=== PATIENT | female | born 1965 | race Caucasian/White ===

== ENCOUNTER 2018-07-26 14:23 | Inpatient (IN) ==
[2018-07-26] MEDS ORDERED: Sod Chloride 0.9% Inj 1,000 ML IV.SIG SCH (15:00)
--- NOTE | 2018-07-26 15:01 | ED ---
HPI General Chief complaint: Fever Stated complaint: fever/chills following masectomy/chest pain Time Seen by Provider: 07/26/18 14:53 Source: patient Mode of arrival: ambulatory Limitations: no limitations History of Present Illness HPI narrative: 55-year-old female is complaining that she feels like she is having fever. She is been aching all over. Her joints have been sore. She has had a slight cough and she has pain with coughing. She had a mastectomy done on June 28 at [facility] with Dr. Looney. She saw him last Monday and he injected tissue good humor vendor into the right breast. She has not actually checked her fever. She is generally healthy. She was diagnosed with intraductal carcinoma. There is no history of diabetes Related Data Home Medications Medication Instructions Recorded Confirmed ibuprofen 600 mg PO TID PRN 06/27/18 07/26/18 diazepam PRN 07/26/18 Allergies Allergy/AdvReac Type Severity Reaction Status Date / Time No Known Allergies Allergy Verified 07/26/18 14:25 Review of Systems ROS: all other systems reviewed are negative [facility] Medical History Medical History Breast cancer (Acute) Dental root implant present (Acute) Wears glasses (Acute) Surgical History Surgical History H/O mastectomy (Acute) H/O breast biopsy (Acute) H/O oral surgery (Acute) History of lumpectomy of right breast (Acute) Social History Social History Substance History: No History of Abuse Second Hand Smoke Exposure: No Smoking Status: Never smoker How Often Do You Have a Drink Containing Alcohol: Never Recent Travel in [facility] within the Last 8 Weeks: No Recent Out of Country Travel within the Last 8 Weeks: No Exam Narrative Exam Narrative: GENERAL: Well-developed female SKIN: Focused skin assessment warm/dry. Right breast has surgical changes. The entire breast is erythematous and warm extending into the axilla. There is no fluctuance HEAD: Atraumatic. Normocephalic. EYES: Pupils equal and round. No scleral icterus. No injection or drainage. ENT: No nasal bleeding or discharge. Mucous membranes pink and moist. NECK: Trachea midline. No JVD. CARDIOVASCULAR: Regular rate and rhythm. No murmur appreciated. RESPIRATORY: No accessory muscle use. Clear to auscultation. Breath sounds equal bilaterally. GASTROINTESTINAL: Abdomen soft, non-tender, nondistended. Hepatic and splenic margins not palpable. MUSCULOSKELETAL: No obvious deformities. No clubbing. No cyanosis. No edema. NEUROLOGICAL: Awake and alert. No obvious cranial nerve deficits. Motor grossly within normal limits. Normal speech. PSYCHIATRIC: Appropriate mood and affect; insight and judgment normal. Course Initial Documented Vital Signs Temperature 99.1 F 07/26/18 14:26 Pulse Rate 90 07/26/18 14:26 Respiratory Rate 16 07/26/18 14:26 Blood Pressure 138/63 07/26/18 14:26 Pulse Oximetry 99 07/26/18 14:26 Last Documented Vital Signs Temperature 99.1 F 07/26/18 14:26 Pulse Rate 90 07/26/18 14:26 Respiratory Rate 16 07/26/18 14:26 Blood Pressure 138/63 07/26/18 14:26 Pulse Oximetry 98 07/26/18 14:40 Medical Decision Making MDM Narrative Medical decision making narrative: White count is 9.5. Dr. Looney has been called Medical Screen Exam Complete: Yes Emergency Medical Condition: Yes Differential Diagnosis Differential Diagnosis: Differential includes cellulitis of the breast, postop infection, foreign body reaction Lab Data Result diagrams: 07/26/18 15:15 07/26/18 15:15 Lab Results 07/26/18 07/26/18 Range/Units 15:15 15:15 CBC w Diff Auto diff final WBC 9.6 (4.0-11.0) th/mm3 RBC 4.14 (4.00-5.30) mil/mm3 Hgb 12.1 (11.6-15.3) gm/dL Hct 35.3 (35.0-46.0) % MCV 85.2 (80.0-100.0) fL MCH 29.3 (27.0-34.0) pg MCHC 34.3 (32.0-36.0) % RDW 12.4 (11.6-17.2) % Plt Count 267 (150-450) th/mm3 MPV 8.1 (7.0-11.0) fL Neut % (Auto) 74.5 H (16.0-70.0) % Lymph % (Auto) 17.3 (9.0-44.0) % [place] % (Auto) 7.3 (0.0-8.0) % Eos % (Auto) 0.6 (0.0-4.0) % Baso % (Auto) 0.3 (0.0-2.0) % Neut # (Auto) 7.1 (1.8-7.7) th/mm3 Lymph # (Auto) 1.7 (1.0-4.8) th/mm3 [place] # (Auto) 0.7 (0.0-0.9) th/mm3 Eos # (Auto) 0.1 (0.0-0.4) th/mm3 Baso # (Auto) 0.0 (0.0-0.2) th/mm3 WBC Differential . Differential Comment . Sodium 140 (136-145) meq/L Potassium 3.8 (3.5-5.1) meq/L Chloride 108 H (98-107) meq/L Carbon Dioxide 25.5 (21.0-32.0) meq/L Anion Gap 7 (5-15) meq/L BUN 11 (7-18) mg/dL Random Glucose 108 H (74-106) mg/dL Calcium 8.3 L (8.5-10.1) mg/dL Magnesium 2.0 (1.5-2.5) mg/dL Albumin 3.4 (3.4-5.0) g/dL Imaging Data Radiologist's impression: Chest X-Ray 07/26/18 14:55 CONCLUSION: No acute disease Discharge Plan Discharge Disposition Patient Disposition: 30 Still Patient Discharge Condition Condition: Fair Discharge Details Diagnosis: Cellulitis of right breast Physicians Team ED Provider: Chetan Humphries Primary Care Provider: Primary Care LucioiLisseth Rxs /Orders / Referrals /Forms Prescriptions: No Action ibuprofen 600 mg Tablet 600 mg PO TID PRN (Reason: Pain) RF: 0 diazepam PRN (Reason: Analgesia) RF: 0 Status ED Status: With Doctor
--- NOTE | 2018-07-26 15:24 | XR ---
EXAM DATE: 07/26/2018 3:15 PM EST AGE/SEX: 52 years / Female INDICATIONS: Fever for 2 days post mastectomy 1 month ago. CLINICAL DATA: This is the patient's initial encounter. Patient reports that signs and symptoms have been present for 2 days and indicates a pain score of 0/10. MEDICAL/SURGICAL HISTORY: Carcinoma, breast. Mastectomy, right. COMPARISON: No prior exams available for comparison. FINDINGS: No focal infiltrate or effusion. Cardiac contours are satisfactory. Right breast tissue dental therapist in p lace. Skeletal structures grossly unremarkable. CONCLUSION: No acute disease Electronically signed by: Asif Friedman MD 07/26/2018 3:22 PM EST
[2018-07-26 15:39] LABS: Baso % (Auto) 0.3 % (0.0-2.0); Eos # (Auto) 0.1 th/mm3 (0.0-0.4); Eos % (Auto) 0.6 % (0.0-4.0); Hematocrit 35.3 % (35.0-46.0); Hemoglobin 12.1 gm/dL (11.6-15.3); Lymph # (Auto) 1.7 th/mm3 (1.0-4.8); Lymph % (Auto) 17.3 % (9.0-44.0); Mean Corpuscular HGB Conc 34.3 % (32.0-36.0); Mean Corpuscular Hemoglobin 29.3 pg (27.0-34.0); Mean Corpuscular Volume 85.2 fL (80.0-100.0); Mean Platelet Volume 8.1 fL (7.0-11.0); Mono # (Auto) 0.7 th/mm3 (0.0-0.9); Mono % (Auto) 7.3 % (0.0-8.0); Neut # (Auto) 7.1 th/mm3 (1.8-7.7); Neut % (Auto) 74.5 % (16.0-70.0); Platelet Count 267 th/mm3 (150-450); Red Blood Count 4.14 mil/mm3 (4.00-5.30); Red Cell Distribution Width 12.4 % (11.6-17.2); White Blood Count 9.6 th/mm3 (4.0-11.0)
[2018-07-26 15:40] LABS: Chloride 108 meq/L (98-107); Potassium 3.8 meq/L (3.5-5.1); Sodium 140 meq/L (136-145)
[2018-07-26 15:43] LABS: Calcium 8.3 mg/dL (8.5-10.1)
[2018-07-26] MEDS ORDERED: Piperacil/Tazo 4.5 GM Premix 4.5 GM/100 ML BAG IV.SIG ONE (15:43)
[2018-07-26] MEDS ORDERED: Vancomycin Inj 1,000 MG in Sodium Chlor 0.9% Inj 250 ML IV.SIG ONE (15:43)
[2018-07-26 15:44] LABS: Albumin 3.4 g/dL (3.4-5.0); Anion Gap 7 meq/L (5-15); Blood Urea Nitrogen 11 mg/dL (7-18); Carbon Dioxide 25.5 meq/L (21.0-32.0); Glucose,Random 108 mg/dL (74-106)
[2018-07-26 15:47] LABS: Alanine Aminotransferase 52 U/L (10-53); Aspartate Aminotransferase 41 U/L (15-37); Glomerular Filtration Rate Greater Than 89 mL/min (>89)
[2018-07-26 15:48] LABS: Total Protein 7.1 g/dL (6.4-8.2)
[2018-07-26 15:49] LABS: Alkaline Phosphatase 128 U/L (45-117)
[2018-07-26 16:23] LABS: Bilirubin,Urine Negative (Negative); Clarity,Urine Slightly Cloudy (Clear); Color,Urine Yellow (Yellw/Straw); Glucose,Urine (UA) Negative (Negative); Leukocyte Esterase,Urine Negative (Negative); Nitrite,Urine Negative (Negative)
[2018-07-26 16:31] LABS: Amorphous Sediment,Urine Few /hpf; WBC,Urine 0-5 /hpf (0-5)
[2018-07-26 16:32] LABS: Squamous Epithelial Cell,Urine 0-5 /hpf (0-5)
[2018-07-26] MEDS ORDERED: Bisacodyl 10 MG Supp RECTAL PRN (16:56)
[2018-07-26] MEDS ORDERED: Acetaminophen 325 MG Tablet PO PRN (16:56)
--- NOTE | 2018-07-26 17:01 | P.HP ---
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 Patient states that she underwent a total right mastectomy on 06/28/[address] Loyola and Dr. Looney and since that time was doing very well post operatively. She visited Dr. Looney's office on Monday07/24/18 for drain removal and placement of breast service dismantler. Patient states that she went home and was doing well over the course of the afternoon when that evening around 2030 on Monday she developed sudden chills and subjective fevers of 99.0. Patient states she took some Advil and rested. The next day she complaints of overall generalized fatigue, low-grade fevers, continued chills and developing pain over her right breast and mid sternal area. She states the pain was characteristically heavy in nature, constant and worsened with every breath. Pain has improved with rest and NSAIDs. Along with said symptoms she also noticed a developing mild erythema around her right areola, extending around her entire breast and moving to axilla which prompted her presentation to the ED. Upon assessment tonight patient has mild erythema around right areola expanding to her right axilla, with tenderness to palpation especially in midsternal chest area. ED physician requesting admission and consult placed to plastic surgery Dr. Looney. - Diagnosis (1) Ductal carcinoma in situ of right breast (2) Cellulitis of right breast (3) Amastia Review of Systems All other systems reviewed negative except as stated in HPI PMFSH - History History Provided By: Patient - Medical History Medical History: Medical History (Last Reviewed 07/26/18 @ 17:37 by Veronika Ferreira) Breast cancer Dental root implant present Wears glasses - Surgical History Surgical History: Surgical History (Last Reviewed 07/26/18 @ 17:37 by Veronika Ferreira) H/O mastectomy H/O breast biopsy H/O oral surgery History of lumpectomy of right breast - Family History Family History: Family History (Last Updated 07/26/18 @ 17:37 by Veronika Ferreira) Other Family history non-contributory - Social History I have reviewed the patient's Social History: Yes - Tobacco History Second Hand Smoke Exposure: No Smoking Status: Never smoker - Alcohol History How Often Do You Have a Drink Containing Alcohol: Never - Substance Use History Substance History: No History of Abuse - Travel History Recent Travel in the [place] Within the Last 8 Weeks: No Recent Travel Out of the Country Within the Last 8 Weeks: No - Immunization History Tetanus Immunization: Unsure Medications and Allergies Active Medications: Active Medications Acetaminophen (Tylenol) 650 mg PO Q4H PRN PRN Reason: Temp > 100.4 Al Hydroxide/Mg Hydroxide (Milk Of Magnesia Liq) 30 ml PO Q12H PRN PRN Reason: Mild Constipation Bisacodyl (Dulcolax Supp) 10 mg RECTAL DAILY PRN PRN Reason: SEVERE CONSITIPATION Ampicillin Sodium/Sulbactam (Sodium 3 gm/ Sodium Chloride) 100 mls @ 200 mls/ hr IV.SIG Q6H BEBETO Sodium Chloride (Ns Inj) 1,000 mls @ 100 mls/hr IV.CONT .Q10H BEBETO Vancomycin HCl 1,000 mg/ (Sodium Chloride) 250 mls @ 250 mls/hr IV.SIG Q24H BEBETO Lactulose (Lactulose Liq) 30 ml PO DAILY PRN PRN Reason: SEVERE CONSITIPATION Ondansetron HCl (Zofran Inj) 4 mg IV.PUSH Q6H PRN PRN Reason: NAUSEA OR VOMITING Sennosides (Senokot) 17.2 mg PO Q12H PRN PRN Reason: Moderate Constipation Allergies Allergy/AdvReac Type Severity Reaction Status Date / Time No Known Allergies Allergy Verified 07/26/18 14:25 Home Medications Medication Instructions Recorded Confirmed Type ibuprofen 600 mg PO TID PRN 06/27/18 07/26/18 History diazepam PRN 07/26/18 History Exam Vital signs: Vital Signs 07/26/18 14:26 07/26/18 14:40 07/26/18 15:50 Temperature 99.1 F Pulse Rate 90 85 Respiratory Rate 16 20 Blood Pressure 138/63 116/62 Pulse Oximetry 99 98 100 07/26/18 15:51 07/26/18 15:52 07/26/18 16:56 Temperature Pulse Rate 77 85 Respiratory Rate 16 Blood Pressure 102/60 Pulse Oximetry 96 Intake & Output 07/25/18 07/26/18 07/26/18 18:59 06:59 18:59 Intake Total 1100 / 1100 Balance 1100 / 1100 Weight 67 kg Intake: IV 1100 / 1100 Zosyn 4.5 GM Premix 4.5 gm In 100 / 100 100 ml @ 200 mls/hr IV.SIG ONCE ONE Rx#:[id number] NS Inj 1,000 ML @ 1000 mls/hr 1000 / 1000 IV.SIG BOLUS BEBETO Rx#:[id number] Narrative: GENERAL: Well-developed, well-nourished patient in NAD. SKIN: Warm and dry. No rash. HEAD: Normocephalic. Atraumatic. EYES: Pupils equal and round. No scleral icterus. No injection or drainage. ENT: No nasal bleeding or discharge. Mucous membranes pink and moist. NECK: Supple. Trachea midline. CARDIOVASCULAR: Regular rate and rhythm. S1, S2 noted. No murmur appreciated. Midsternal chest discomfort to palpation. RESPIRATORY: No accessory muscle use. Clear to auscultation. Breath sounds equal bilaterally. GASTROINTESTINAL: Abdomen soft, non-tender, nondistended. Normoactive bowel sounds x4. MUSCULOSKELETAL: No obvious deformities. Extremities without clubbing, cyanosis , or edema. NEUROLOGICAL: Awake and alert. No obvious cranial nerve deficits. Motor grossly within normal limits. 5/5 muscle strength in bilateral upper and lower extremities. Normal speech. PSYCHIATRIC: Appropriate mood and affect; insight and judgment normal. RIGHT BREAST: Amastia to right breast with surgical changes, erythema to entire right breast extending to axilla. No palpable fluctuance. Pain is noted to palpation especially in midsternal chest area. No drainage. Surgical site clean , dry and intact. Incision clean. Results - Labs CBC & Chem 7: 07/26/18 15:15 07/26/18 15:15 Labs: Laboratory Results - last 24 hr 07/26/18 07/26/18 07/26/18 15:15 15:15 15:15 CBC w Diff Auto diff final WBC 9.6 RBC 4.14 Hgb 12.1 Hct 35.3 MCV 85.2 MCH 29.3 MCHC 34.3 RDW 12.4 Plt Count 267 MPV 8.1 Neut % (Auto) 74.5 H Lymph % (Auto) 17.3 [place] % (Auto) 7.3 Eos % (Auto) 0.6 Baso % (Auto) 0.3 Neut # (Auto) 7.1 Lymph # (Auto) 1.7 [place] # (Auto) 0.7 Eos # (Auto) 0.1 Baso # (Auto) 0.0 WBC Differential . Differential Comment . Sodium 140 Potassium 3.8 Chloride 108 H Carbon Dioxide 25.5 Anion Gap 7 BUN 11 Creatinine 0.67 Estimated GFR Greater than 89 Random Glucose 108 H Lactic Acid 0.6 Calcium 8.3 L Magnesium 2.0 Total Bilirubin 0.4 AST 41 H ALT 52 Alkaline Phosphatase 128 H Total Protein 7.1 Albumin 3.4 Ur Collection Type Urine Color Urine Clarity Urine pH Ur Specific [place] Urine Protein Urine Glucose (UA) Urine Ketones Urine Occult Blood Urine Nitrate Urine Bilirubin Urine Urobilinogen Ur Leukocyte Esterase Urine WBC Ur Squamous Epith Cells Amorphous Sediment Micro UA Comment Ur Microscopic Review Urine Culture Comments 07/26/18 16:00 CBC w Diff WBC RBC Hgb Hct MCV MCH MCHC RDW Plt Count MPV Neut % (Auto) Lymph % (Auto) [place] % (Auto) Eos % (Auto) Baso % (Auto) Neut # (Auto) Lymph # (Auto) [place] # (Auto) Eos # (Auto) Baso # (Auto) WBC Differential Differential Comment Sodium Potassium Chloride Carbon Dioxide Anion Gap BUN Creatinine Estimated GFR Random Glucose Lactic Acid Calcium Magnesium Total Bilirubin AST ALT Alkaline Phosphatase Total Protein Albumin Ur Collection Type Clean catch Urine Color Yellow Urine Clarity Slightly cloudy Urine pH 7.0 Ur Specific [place] 1.010 Urine Protein Negative Urine Glucose (UA) Negative Urine Ketones Negative Urine Occult Blood Trace Urine Nitrate Negative Urine Bilirubin Negative Urine Urobilinogen 1.0 Ur Leukocyte Esterase Negative Urine WBC 0-5 Ur Squamous Epith Cells 0-5 Amorphous Sediment Few H Micro UA Comment Culture not ind Ur Microscopic Review Microscopic reviewed Urine Culture Comments Culture not ind - Imaging Impressions Chest X-Ray 07/26/18 14:55 CONCLUSION: No acute disease Caprini VTE Risk Assessment Caprini VTE Risk Assessment: No/Low Risk (score <= 1) Caprini Risk Assessment Model: Point Value = 1 Point Value = 2 Point Value = 3 Point Value = 5 Age 41-60 Minor surgery BMI > 25 kg/m2 Swollen legs Varicose veins or History of unexplained or recurrent spontaneous Oral contraceptives or hormone replacement Sepsis (< 1 month) Serious lung disease, including pneumonia (< 1 month) Abnormal pulmonary function Acute myocardial infarction Congestive heart failure (< 1 month) History of inflammatory bowel disease Medical patient at bed rest Age 61-74 Arthroscopic surgery Major open surgery (> 45 min) Laparoscopic surgery (> 45 min) Malignancy Confined to bed (> 72 hours) Immobilizing plaster cast Central venous access Age >= 75 History of VTE Family history of VTE Factor V Leiden Prothrombin [id number] Lupus anticoagulant Anticardiolipin antibodies Elevated serum homocysteine Heparin-induced thrombocytopenia Other congenital or acquired thrombophilia Stroke (< 1 month) Elective arthroplasty Hip, pelvis, or leg fracture Acute spinal cord injury (< 1 month) Prophylaxis Regimen: Total Risk Factor Score Risk Level Prophylaxis Regimen 0-1 Low Early ambulation 2 Moderate Order ONE of the following: *Sequential Compression Device (SCD) *Heparin 5000 units SQ BID 3-4 Higher Order ONE of the following medications: *Heparin 5000 units SQ TID *Enoxaparin/Lovenox 40 mg SQ daily (WT < 150 kg, CrCl > 30 mL/min) *Enoxaparin/Lovenox 30 mg SQ daily (WT < 150 kg, CrCl > 10-29 mL/min) *Enoxaparin/Lovenox 30 mg SQ BID (WT < 150 kg, CrCl > 30 mL/min) AND/OR *Sequential Compression Device (SCD) 5 or more Highest Order ONE of the following medications: *Heparin 5000 units SQ TID (Preferred with Epidurals) *Enoxaparin/Lovenox 40 mg SQ daily (WT < 150 kg, CrCl > 30 mL/min) *Enoxaparin/Lovenox 30 mg SQ daily (WT < 150 kg, CrCl > 10-29 mL/min) *Enoxaparin/Lovenox 30 mg SQ BID (WT < 150 kg, CrCl > 30 mL/min) AND *Sequential Compression Device (SCD) Assessment and Plan - Assessment (1) Ductal carcinoma in situ of right breast Code(s): D05.11 - Intraductal carcinoma in situ of right breast Status: Acute (2) Cellulitis of right breast Code(s): N61.0 - Mastitis without abscess Status: Acute (3) Amastia Code(s): 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 -Initial diagnosis of right breast cancer DCIS in April 2018, underwent mastectomy 06/28/18, and had a right breast tissue service dismantler placed on Monday by Dr. Looney. -Consult placed to plastic surgery, input and recommendations pending. Requesting transfer to [facility]. -ED physician has given IV Zosyn and Vanco. Will continue on Vanco and Unasyn IV for now. -CBC and BMP reviewed and essentially unremarkable. Currently afebrile. Lactic acid WNL. UA negative. -Blood cultures ordered and pending. Follow. -CXR reviewed and showing no acute findings. Ultrasound of right breast ordered and pending. Follow. -Ensure hydration, continue IVF. Will allow to eat this evening, NPO after midnight until surgery recommendations clear. -Pain control with Acetaminophen as needed, [place] per pain scale. -Supportive care. DVT Prophylaxis: SCDs. Ambulation as tolerated. Defer chemical prophylaxis to surgery.
[2018-07-26] MEDS: Sod Chloride 0.9% Inj 1,000 ML IV.CONT SCH (18:21)
[2018-07-26] MEDS: Ampicillin/Sulbactam Inj 3 GM in Sodium Chloride 0.9% Inj 100 ML IV.SIG SCH ×2 (18:21→22:16)
--- NOTE | 2018-07-26 18:23 | US ---
EXAM DATE: 07/26/2018 6:08 PM EST AGE/SEX: 52 years / Female INDICATIONS: Swelling and redness after mastectomy. CLINICAL DATA: This is the patient's initial encounter. Patient reports that signs and symptoms have been present for 3 days and indicates a pain score of 6/10. MEDICAL/SURGICAL HISTORY: Carcinoma, breast. Mastectomy, right. Breast biopsy. Lumpectomy of ri ght breast. COMPARISON: No prior exams available for comparison. TECHNIQUE: Real-time ultrasound examination was performed using a high-frequency transducer. Conven tional and compound scanning techniques were used. FINDINGS: Real-time ultrasound examination was performed of the mastectomy site with breast finisher map and chart. There is a focal fluid collection at the 9:00 region which measures 3.4 x 0.9 x 1.5 cm, smooth margin, no incr eased flow, and no internal echoes. CONCLUSION: 1. 3 cm focal fluid collection in the 9:00 right mastectomy region, lateral to the breast.. Electronically signed by: Christopher Amaya MD 07/26/2018 6:21 PM EST
[2018-07-27] MEDS: Ampicillin/Sulbactam Inj 3 GM in Sodium Chloride 0.9% Inj 100 ML IV.SIG SCH (05:11)
[2018-07-27] MEDS: Sod Chloride 0.9% Inj 1,000 ML IV.CONT SCH ×3 (05:11→15:11)
[2018-07-27 07:04] LABS: Baso % (Auto) 0.3 % (0.0-2.0); Eos # (Auto) 0.1 th/mm3 (0.0-0.4); Hematocrit 29.6 % (35.0-46.0); Hemoglobin 10.6 gm/dL (11.6-15.3); Lymph % (Auto) 26.4 % (9.0-44.0); Mean Corpuscular HGB Conc 35.7 % (32.0-36.0); Mean Corpuscular Hemoglobin 30.7 pg (27.0-34.0); Mean Corpuscular Volume 86.1 fL (80.0-100.0); Mean Platelet Volume 8.2 fL (7.0-11.0); Mono # (Auto) 0.5 th/mm3 (0.0-0.9); Mono % (Auto) 7.3 % (0.0-8.0); Neut # (Auto) 4.9 th/mm3 (1.8-7.7); Platelet Count 205 th/mm3 (150-450); Red Blood Count 3.44 mil/mm3 (4.00-5.30); Red Cell Distribution Width 12.6 % (11.6-17.2); White Blood Count 7.5 th/mm3 (4.0-11.0)
[2018-07-27 07:21] LABS: Chloride 113 meq/L (98-107); Potassium 3.7 meq/L (3.5-5.1); Sodium 145 meq/L (136-145)
[2018-07-27 07:26] LABS: Calcium 7.8 mg/dL (8.5-10.1)
[2018-07-27 07:27] LABS: Anion Gap 8 meq/L (5-15); Blood Urea Nitrogen 7 mg/dL (7-18); Carbon Dioxide 24.5 meq/L (21.0-32.0); Glucose,Random 84 mg/dL (74-106)
[2018-07-27 07:30] LABS: Glomerular Filtration Rate Greater Than 89 mL/min (>89)
--- NOTE | 2018-07-27 08:41 | P.PNIM ---
Subjective Interval history: Follow up right breast cellulitis. Patient seen and examined, lying in bed comfortably in no apparent distress. Awake and alert. Denies any acute events overnight. Actually feels much improved overnight. Pain has resolved. Afebrile overnight. Erythema on right breast has improved significantly overnight. Physical Exam Vital signs: Vital Signs 07/26/18 14:26 07/26/18 14:40 07/26/18 15:50 Temperature 99.1 F Pulse Rate 90 85 Respiratory Rate 16 20 Blood Pressure 138/63 116/62 Pulse Oximetry 99 98 100 07/26/18 15:51 07/26/18 15:52 07/26/18 16:56 Temperature Pulse Rate 77 85 Respiratory Rate 16 Blood Pressure 102/60 Pulse Oximetry 96 07/26/18 18:30 07/26/18 20:00 07/27/18 00:00 Temperature 98.6 F 98.7 F 99.8 F H Pulse Rate 81 84 88 Respiratory Rate 20 20 20 Blood Pressure 100/59 L 99/53 L 91/55 L Pulse Oximetry 98 98 96 07/27/18 04:00 Temperature 98.5 F Pulse Rate 75 Respiratory Rate 20 Blood Pressure 96/49 L Pulse Oximetry 97 Intake & Output 07/26/18 07/27/18 07/27/18 18:59 06:59 18:59 Intake Total 1350 / 1350 1300 / 1300 Balance 1350 / 1350 1300 / 1300 Weight 67 kg 67.2 kg Intake: IV 1350 / 1350 1300 / 1300 NS Inj 1,000 ML @ 100 mls/hr IV 1000 / 1000 .CONT .Q10H BEB[facility]O Rx#:[id number] Unasyn Inj 3 GM In NS Inj 100 300 / 300 ML @ 200 mls/hr IV.SIG Q6H BE[facility]O Rx#:[id number] Zosyn 4.5 GM Premix 4.5 gm In 100 / 100 100 ml @ 200 mls/hr IV.SIG ONCE ONE Rx#:[id number] NS Inj 1,000 ML @ 1000 mls/hr 1000 / 1000 IV.SIG BOLUS BEBETO Rx#:[id number] Vancomycin Inj 1,000 MG In NS 250 / 250 Inj 250 ML @ 250 mls/hr IV.SIG ONCE ONE Rx#:[id number] Oral 0 / 0 Other: # Voids 4 Weight On Admission 67 kg Narrative: GENERAL: Well-developed, well-nourished patient in NAD. SKIN: Warm and dry. No rash. HEAD: Normocephalic. Atraumatic. EYES: Pupils equal and round. No scleral icterus. No injection or drainage. ENT: No nasal bleeding or discharge. Mucous membranes pink and moist. NECK: Supple. Trachea midline. CARDIOVASCULAR: Regular rate and rhythm. S1, S2 noted. No murmur appreciated. RESPIRATORY: No accessory muscle use. Clear to auscultation. Breath sounds equal bilaterally. GASTROINTESTINAL: Abdomen soft, non-tender, nondistended. Normoactive bowel sounds x4. MUSCULOSKELETAL: No obvious deformities. Extremities without clubbing, cyanosis , or edema. NEUROLOGICAL: Awake and alert. No obvious cranial nerve deficits. Motor grossly within normal limits. 5/5 muscle strength in bilateral upper and lower extremities. Normal speech. PSYCHIATRIC: Appropriate mood and affect; insight and judgment normal. RIGHT BREAST: Right breast with surgical changes, erythema has much improved today, limited now just around right areola, no pain to palpation. No palpable fluctuance. No drainage. Surgical site clean, dry and intact. Incision clean. Results - Labs CBC & Chem 7: 07/27/18 06:45 07/27/18 06:45 Laboratory Results - last 24 hr 07/26/18 07/26/18 07/26/18 15:15 15:15 15:15 CBC w Diff Auto diff final WBC 9.6 RBC 4.14 Hgb 12.1 Hct 35.3 MCV 85.2 MCH 29.3 MCHC 34.3 RDW 12.4 Plt Count 267 MPV 8.1 Neut % (Auto) 74.5 H Lymph % (Auto) 17.3 [place] % (Auto) 7.3 Eos % (Auto) 0.6 Baso % (Auto) 0.3 Neut # (Auto) 7.1 Lymph # (Auto) 1.7 [place] # (Auto) 0.7 Eos # (Auto) 0.1 Baso # (Auto) 0.0 WBC Differential . Differential Comment . Sodium 140 Potassium 3.8 Chloride 108 H Carbon Dioxide 25.5 Anion Gap 7 BUN 11 Creatinine 0.67 Estimated GFR Greater than 89 Random Glucose 108 H Lactic Acid 0.6 Calcium 8.3 L Magnesium 2.0 Total Bilirubin 0.4 AST 41 H ALT 52 Alkaline Phosphatase 128 H Total Protein 7.1 Albumin 3.4 Ur Collection Type Urine Color Urine Clarity Urine pH Ur Specific [place] Urine Protein Urine Glucose (UA) Urine Ketones Urine Occult Blood Urine Nitrate Urine Bilirubin Urine Urobilinogen Ur Leukocyte Esterase Urine WBC Ur Squamous Epith Cells Amorphous Sediment Micro UA Comment Ur Microscopic Review Urine Culture Comments 07/26/18 07/27/18 07/27/18 16:00 06:45 06:45 CBC w Diff Auto diff final WBC 7.5 RBC 3.44 L Hgb 10.6 L Hct 29.6 L MCV 86.1 MCH 30.7 MCHC 35.7 RDW 12.6 Plt Count 205 MPV 8.2 Neut % (Auto) 65.0 Lymph % (Auto) 26.4 [place] % (Auto) 7.3 Eos % (Auto) 1.0 Baso % (Auto) 0.3 Neut # (Auto) 4.9 Lymph # (Auto) 2.0 [place] # (Auto) 0.5 Eos # (Auto) 0.1 Baso # (Auto) 0.0 WBC Differential . Differential Comment . Sodium 145 Potassium 3.7 Chloride 113 H Carbon Dioxide 24.5 Anion Gap 8 BUN 7 Creatinine 0.50 Estimated GFR Greater than 89 Random Glucose 84 Lactic Acid Calcium 7.8 L Magnesium Total Bilirubin AST ALT Alkaline Phosphatase Total Protein Albumin Ur Collection Type Clean catch Urine Color Yellow Urine Clarity Slightly cloudy Urine pH 7.0 Ur Specific [place] 1.010 Urine Protein Negative Urine Glucose (UA) Negative Urine Ketones Negative Urine Occult Blood Trace Urine Nitrate Negative Urine Bilirubin Negative Urine Urobilinogen 1.0 Ur Leukocyte Esterase Negative Urine WBC 0-5 Ur Squamous Epith Cells 0-5 Amorphous Sediment Few H Micro UA Comment Culture not ind Ur Microscopic Review Microscopic reviewed Urine Culture Comments Culture not ind Microbiology 07/26/18 15:22 Nasal Wash Influenza Types A,B Antigen - Final Negative for FLU A and B antigen Infection due to influenza A or B cannot be ruled out since the antigen present in the sample may be below the detection limit of the test. - Imaging Impressions Breast Ultrasound 07/26/18 00:00 CONCLUSION: 1. 3 cm focal fluid collection in the 9:00 right mastectomy region, lateral to the breast.. 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 History of right breast cancer-DCIS with right mastectomy and tissue tire builder placement -Patient presents with 2-day history of subjective fevers, chills, generalized malaise, worsening pain and erythema to right breast. -Initial diagnosis of right breast cancer DCIS in April 2018, underwent mastectomy 06/28/18, and had a right breast tissue tire builder placed on Monday by Dr. Looney. -Consult placed to plastic surgery, input and recommendations pending. Requesting transfer to [facility]. Awaiting bed. -ED physician has given IV Zosyn and Vanco. Will continue on Vanco and Unasyn IV for now. -CBC and BMP reviewed and essentially unremarkable. Currently afebrile. Lactic acid WNL. UA negative. -Blood cultures ordered and pending. Follow. -CXR reviewed and showing no acute findings. Ultrasound of right breast ordered and pending. Follow. -Ensure hydration, continue IVF. NPO until surgery recommendations clear. -Pain control with Acetaminophen as needed, [place] per pain scale. Pain is presently absent. -Supportive care. DVT Prophylaxis: SCDs. Ambulation as tolerated. Defer chemical prophylaxis to surgery. Code Status: Full code. Discussed Condition With: D/w RN and patient. Discharge Planning: Awaiting plastic surgery consultation.
--- NOTE | 2018-07-27 10:10 | P.CON ---
History of Present Illness Service: Plastic surgery Consult date: 07/27/18 Primary Care Provider: No Primary Care Physician Chief Complaint: Right breast cellulitis History of Present Illness: 52-year-old female patient with a history of right breast cancer DCIS s/p mastectomy/tissue director statistical programming on 06/28/18 who presented to the ED with complaints of right breast tenderness, erythema and subjective fevers x 2 days. Patient last seen by Dr. Looney on 07/24/18 and was doing well. Patient now status post overnight admission with IV Unasyn/vancomycin, feeling significantly better, with much less pain/redness per patient. Patient denies new complaints. Review of Systems All other systems reviewed negative except as stated in HPI [facility] Medical History: Medical History (Last Reviewed 07/26/18 @ 17:37 by Veronika Ferreira) Breast cancer Surgical History: Surgical History (Last Reviewed 07/26/18 @ 17:37 by Veronika Ferreira) H/O mastectomy H/O breast biopsy H/O oral surgery History of lumpectomy of right breast Family History: Family history noncontributory to presenting complaint Medication list reviewed Social history negative for tobacco [facility] - History History Provided By: Patient - Medical History Medical History: Medical History (Last Reviewed 07/26/18 @ 17:37 by Veronika Ferreira) Breast cancer Dental root implant present Wears glasses - Surgical History Surgical History: Surgical History (Last Reviewed 07/26/18 @ 17:37 by Veronika Ferreira) H/O mastectomy H/O breast biopsy H/O oral surgery History of lumpectomy of right breast - Family History Family History: Family History (Last Updated 07/26/18 @ 17:37 by Veronika Ferreira) Other Family history non-contributory - Tobacco History Second Hand Smoke Exposure: No Smoking Status: Never smoker - Alcohol History How Often Do You Have a Drink Containing Alcohol: Never - Substance Use History Substance History: No History of Abuse - Travel History Recent Travel in the [place] Within the Last 8 Weeks: No Recent Travel Out of the Country Within the Last 8 Weeks: No - Immunization History Tetanus Immunization: Unsure Medications and Allergies Active Medications: Active Medications Acetaminophen (Tylenol) 650 mg PO Q4H PRN PRN Reason: Temp > 100.4 Hydrocodone Bitart/Acetaminophen (Drury 5/325) 1 tab PO Q6H PRN PRN Reason: PAIN SCALE 1 TO 10 Al Hydroxide/Mg Hydroxide (Milk Of Magnesia Liq) 30 ml PO Q12H PRN PRN Reason: Mild Constipation Bisacodyl (Dulcolax Supp) 10 mg RECTAL DAILY PRN PRN Reason: SEVERE CONSITIPATION Sodium Chloride (Ns Inj) 1,000 mls @ 100 mls/hr IV.CONT .Q10H BEBETO Last Admin: 07/27/18 05:11 Dose: 100 mls/hr Vancomycin HCl 1,000 mg/ (Sodium Chloride) 250 mls @ 250 mls/hr IV.SIG Q24H [facility]BETO Piperacillin/Tazobactam/Dextrose (Zosyn 4.5 Gm Premix) 4.5 gm in 100 mls @ 200 mls/hr IV.SIG Q6H BEBETO Lactulose (Lactulose Liq) 30 ml PO DAILY PRN PRN Reason: SEVERE CONSITIPATION Ondansetron HCl (Zofran Inj) 4 mg IV.PUSH Q6H PRN PRN Reason: NAUSEA OR VOMITING Sennosides (Senokot) 17.2 mg PO Q12H PRN PRN Reason: Moderate Constipation Allergies Allergy/AdvReac Type Severity Reaction Status Date / Time No Known Allergies Allergy Verified 07/26/18 14:25 Home Medications Medication Instructions Recorded Confirmed Type ibuprofen 600 mg PO TID PRN 06/27/18 07/26/18 History diazepam PRN 07/26/18 History Physical Exam Vital signs: Vital Signs 07/26/18 14:26 07/26/18 14:40 07/26/18 15:50 Temperature 99.1 F Pulse Rate 90 85 Respiratory Rate 16 20 Blood Pressure 138/63 116/62 Pulse Oximetry 99 98 100 07/26/18 15:51 07/26/18 15:52 07/26/18 16:56 Temperature Pulse Rate 77 85 Respiratory Rate 16 Blood Pressure 102/60 Pulse Oximetry 96 07/26/18 18:30 07/26/18 20:00 07/27/18 00:00 Temperature 98.6 F 98.7 F 99.8 F H Pulse Rate 81 84 88 Respiratory Rate 20 20 20 Blood Pressure 100/59 L 99/53 L 91/55 L Pulse Oximetry 98 98 96 07/27/18 04:00 07/27/18 08:00 Temperature 98.5 F 98.6 F Pulse Rate 75 78 Respiratory Rate 20 18 Blood Pressure 96/49 L 93/49 L Pulse Oximetry 97 96 Intake & Output 07/26/18 07/27/18 07/27/18 18:59 06:59 18:59 Intake Total 1350 / 1350 1300 / 1300 Balance 1350 / 1350 1300 / 1300 Weight 67 kg 67.2 kg Intake: IV 1350 / 1350 1300 / 1300 NS Inj 1,000 ML @ 100 mls/hr IV 1000 / 1000 .CONT .Q10H [facility]O Rx#:[id number] Unasyn Inj 3 GM In NS Inj 100 300 / 300 ML @ 200 mls/hr IV.SIG Q6H [facility]O Rx#:[id number] Zosyn 4.5 GM Premix 4.5 gm In 100 / 100 100 ml @ 200 mls/hr IV.SIG ONCE ONE Rx#:[id number] NS Inj 1,000 ML @ 1000 mls/hr 1000 / 1000 IV.SIG BOLUS BEBETO Rx#:[id number] Vancomycin Inj 1,000 MG In NS 250 / 250 Inj 250 ML @ 250 mls/hr IV.SIG ONCE ONE Rx#:[id number] Oral 0 / 0 Other: # Voids 4 Weight On Admission 67 kg Narrative: No apparent anxiety moist mucous membranes PERRLA skin without wound respirations nonlabored moves all 4 extremities to command digits warm well perfused Right mastectomy incision well apposed Moderate blanching erythema roughly 10 cm including and lateral to the NAC No fluctuance appreciated Incision edges appear viable and with good cap refill Results - Labs CBC & Chem 7: 07/27/18 06:45 07/27/18 06:45 Labs: Laboratory Results - last 24 hr 07/26/18 07/26/18 07/26/18 15:15 15:15 15:15 CBC w Diff Auto diff final WBC 9.6 RBC 4.14 Hgb 12.1 Hct 35.3 MCV 85.2 MCH 29.3 MCHC 34.3 RDW 12.4 Plt Count 267 MPV 8.1 Neut % (Auto) 74.5 H Lymph % (Auto) 17.3 [place] % (Auto) 7.3 Eos % (Auto) 0.6 Baso % (Auto) 0.3 Neut # (Auto) 7.1 Lymph # (Auto) 1.7 [place] # (Auto) 0.7 Eos # (Auto) 0.1 Baso # (Auto) 0.0 WBC Differential . Differential Comment . Sodium 140 Potassium 3.8 Chloride 108 H Carbon Dioxide 25.5 Anion Gap 7 BUN 11 Creatinine 0.67 Estimated GFR Greater than 89 Random Glucose 108 H Lactic Acid 0.6 Calcium 8.3 L Magnesium 2.0 Total Bilirubin 0.4 AST 41 H ALT 52 Alkaline Phosphatase 128 H Total Protein 7.1 Albumin 3.4 Ur Collection Type Urine Color Urine Clarity Urine pH Ur Specific [place] Urine Protein Urine Glucose (UA) Urine Ketones Urine Occult Blood Urine Nitrate Urine Bilirubin Urine Urobilinogen Ur Leukocyte Esterase Urine WBC Ur Squamous Epith Cells Amorphous Sediment Micro UA Comment Ur Microscopic Review Urine Culture Comments 07/26/18 07/27/18 07/27/18 16:00 06:45 06:45 CBC w Diff Auto diff final WBC 7.5 RBC 3.44 L Hgb 10.6 L Hct 29.6 L MCV 86.1 MCH 30.7 MCHC 35.7 RDW 12.6 Plt Count 205 MPV 8.2 Neut % (Auto) 65.0 Lymph % (Auto) 26.4 [place] % (Auto) 7.3 Eos % (Auto) 1.0 Baso % (Auto) 0.3 Neut # (Auto) 4.9 Lymph # (Auto) 2.0 [place] # (Auto) 0.5 Eos # (Auto) 0.1 Baso # (Auto) 0.0 WBC Differential . Differential Comment . Sodium 145 Potassium 3.7 Chloride 113 H Carbon Dioxide 24.5 Anion Gap 8 BUN 7 Creatinine 0.50 Estimated GFR Greater than 89 Random Glucose 84 Lactic Acid Calcium 7.8 L Magnesium Total Bilirubin AST ALT Alkaline Phosphatase Total Protein Albumin Ur Collection Type Clean catch Urine Color Yellow Urine Clarity Slightly cloudy Urine pH 7.0 Ur Specific [place] 1.010 Urine Protein Negative Urine Glucose (UA) Negative Urine Ketones Negative Urine Occult Blood Trace Urine Nitrate Negative Urine Bilirubin Negative Urine Urobilinogen 1.0 Ur Leukocyte Esterase Negative Urine WBC 0-5 Ur Squamous Epith Cells 0-5 Amorphous Sediment Few H Micro UA Comment Culture not ind Ur Microscopic Review Microscopic reviewed Urine Culture Comments Culture not ind - Imaging Impressions Breast Ultrasound 07/26/18 00:00 CONCLUSION: 1. 3 cm focal fluid collection in the 9:00 right mastectomy region, lateral to the breast.. Chest X-Ray 07/26/18 14:55 CONCLUSION: No acute disease Assessment and Plan - Assessment (1) Amastia Code(s): Q83.8 - Other congenital malformations of breast Status: Acute (2) Cellulitis of right breast Code(s): N61.0 - Mastitis without abscess Status: Acute - Plan 52-year-old female status post immediate breast reconstruction with tissue director statistical programming, now with right breast cellulitis Please change antibiotics to IV vancomycin/Zosyn Collection on ultrasound very small by measurement and unappreciable on physical exam Regular diet Patient requires IV antibiotics to prevent implant loss
[2018-07-27] MEDS: Piperacil/Tazo 4.5 GM Premix 4.5 GM/100 ML BAG IV.SIG SCH ×3 (10:31→22:40)
--- NOTE | 2018-07-27 15:17 | ECG ---
Date Performed: 07/26/2018 Time Performed: 14:37:58 PTAGE: 52 years EKG: SINUS TACHYCARDIA WITH SHORT GA INTERVAL LOW QRS VOLTAGE IN PRECORDIAL LEADS ABNORMAL RHYTH M ECG PREVIOUS TRACING : 06/28/2018 08.34 Compared to previous tracing, the sinus tachycardia is new but otherwise no significant serial change. DOCTOR: Sylvie Valadez Interpretating Date/Time 07/27/2018 15:15:39
[2018-07-27] MEDS ORDERED: Vancomycin Inj 1,000 MG in Sodium Chlor 0.9% Inj 250 ML IV.SIG SCH (16:00)
[2018-07-28] MEDS: Sod Chloride 0.9% Inj 1,000 ML IV.CONT SCH ×3 (01:49→18:17)
[2018-07-28] MEDS: Piperacil/Tazo 4.5 GM Premix 4.5 GM/100 ML BAG IV.SIG SCH ×4 (05:30→22:30)
--- NOTE | 2018-07-28 08:20 | P.DS ---
Date of admission: 07/26/18 16:30 Primary care physician: No Primary Care Physician Brief History from admission: This is a pleasant 52-year-old female patient with a known medical history of right breast cancer DCIS initially diagnosed in April 2018, with mastectomy on 06/28/18 and placement of breast flexboard operator 07/24/18 who presented to the ED with complaints of right breast tenderness, erythema and subjective fevers x 2 days. Patient states that she underwent a total right mastectomy on 06/28/[address] Loy[place] and Dr. Looney and since that time was doing very well post operatively. She visited Dr. Looney's office on Monday07/24/18 for drain removal and placement of breast flexboard operator. Patient states that she went home and was doing well over the course of the afternoon when that evening around 2030 on Monday she developed sudden chills and subjective fevers of 99.0. Patient states she took some Advil and rested. The next day she complaints of overall generalized fatigue, low-grade fevers, continued chills and developing pain over her right breast and mid sternal area. She states the pain was characteristically heavy in nature, constant and worsened with every breath. Pain has improved with rest and NSAIDs. Along with said symptoms she also noticed a developing mild erythema around her right areola, extending around her entire breast and moving to axilla which prompted her presentation to the ED. Upon assessment tonight patient has mild erythema around right areola expanding to her right axilla, with tenderness to palpation especially in midsternal chest area. ED physician requesting admission and consult placed to plastic surgery Dr. Looney. DS: Diagnosis - Discharge Diagnosis (1) Ductal carcinoma in situ of right breast Status: Acute (2) Cellulitis of right breast Status: Acute (3) Amastia Status: Acute DS: Summary Hospital Course: This is a 52-year-old female patient who presented to the ED with right breast cellulitis. Has a history of right breast cancer-DCIS with right mastectomy and tissue flexboard operator placement. Patient presented with 2-day history of subjective fevers, chills, generalized malaise, worsening pain and erythema to right breast. Initial diagnosis of right breast cancer DCIS in April 2018, underwent mastectomy 06/28/18, and had a right breast tissue flexboard operator placed on Monday by Dr. Looney. Consult placed to plastic surgery, who saw patient during hospitalization. Patient was placed on IV Zosyn and Vanco while hospitalized as well as IV hydration. CBC and BMP essentially unremarkable. Afebrile. Lactic acid WNL. UA negative. Blood cultures negative to date. CXR reviewed no acute findings. Ultrasound of right breast very small fluid collection. Not appreciable on exam. Erythema, pain have improved with IV antibiotics during the hospitalization. ABX on discharge per surgery. Patient is stable for DC home. Follow up surgery. Diet as tolerated. Activity as tolerated. RX as written. - Time Spent with Patient Total time spent providing and/or coordinating discharge services: Less than 30 minutes - Quality: VTE Deep Vein Thrombosis/Pulmonary Embolism Present on Admission: No Exam Vital signs: Vital Signs 07/27/18 11:18 07/27/18 15:47 07/27/18 20:00 Temperature 98.6 F 97.8 F 97.0 F L Pulse Rate 92 H 79 90 Respiratory Rate 18 18 18 Blood Pressure 95/54 L 105/51 L 101/51 L Pulse Oximetry 97 97 97 07/27/18 23:57 Temperature 97.1 F L Pulse Rate 83 Respiratory Rate 18 Blood Pressure 100/58 L Pulse Oximetry 98 Intake & Output 07/27/18 07/28/18 07/28/18 18:59 06:59 18:59 Intake Total 1450 / 1450 200 / 200 Balance 1450 / 1450 200 / 200 Weight 67.8 kg Intake: IV 1450 / 1450 200 / 200 NS Inj 1,000 ML @ 100 mls/hr IV 1000 / 1000 0 / 0 .CONT .Q10H [facility]O Rx#:[id number] Zosyn 4.5 GM Premix 4.5 gm In 200 / 200 200 / 200 100 ml @ 200 mls/hr IV.SIG Q6H BEBETO Rx#:[id number] Vancomycin Inj 1,000 MG In NS 250 / 250 Inj 250 ML @ 250 mls/hr IV.SIG Q24H BEBETO Rx#:[id number] Other: # Voids 2 Narrative: GENERAL: Well-developed, well-nourished patient in NAD. SKIN: Warm and dry. No rash. HEAD: Normocephalic. Atraumatic. EYES: Pupils equal and round. No scleral icterus. No injection or drainage. ENT: No nasal bleeding or discharge. Mucous membranes pink and moist. NECK: Supple. Trachea midline. CARDIOVASCULAR: Regular rate and rhythm. S1, S2 noted. No murmur appreciated. RESPIRATORY: No accessory muscle use. Clear to auscultation. Breath sounds equal bilaterally. GASTROINTESTINAL: Abdomen soft, non-tender, nondistended. Normoactive bowel sounds x4. MUSCULOSKELETAL: No obvious deformities. Extremities without clubbing, cyanosis , or edema. NEUROLOGICAL: Awake and alert. No obvious cranial nerve deficits. Motor grossly within normal limits. 5/5 muscle strength in bilateral upper and lower extremities. Normal speech. PSYCHIATRIC: Appropriate mood and affect; insight and judgment normal. RIGHT BREAST: Right breast with surgical changes, erythema has much improved today. No palpable fluctuance. No drainage. Surgical site clean, dry and intact. Incision clean. Results Procedures completed during hospitalization: See above. Labs on day of discharge: Preliminary micro results at discharge 07/26/18 16:10 Aerobic Blood Culture - Preliminary Blood - Peripheral No growth in 1 day Anaerobic Blood Culture - Preliminary No growth in 1 day 07/26/18 15:15 Aerobic Blood Culture - Preliminary Blood - Peripheral No growth in 1 day Anaerobic Blood Culture - Preliminary No growth in 1 day - Impressions ITS Impressions Breast Ultrasound 07/26/18 00:00 CONCLUSION: 1. 3 cm focal fluid collection in the 9:00 right mastectomy region, lateral to the breast.. Chest X-Ray 07/26/18 14:55 CONCLUSION: No acute disease Discharge Plan - Discharge Disposition Patient Disposition: 01 Discharge Home - Discharge Condition Condition: Stable - Discharge Details Anticipated Discharge Date: 07/29/18 - Physicians Team Primary Care Provider: Primary Care Physici,Lisseth Attending Provider: Kev Martel Other Providers: Eva Nava MD
--- NOTE | 2018-07-28 11:04 | P.PNIM ---
Subjective Interval history: Patient seen and examined, doing well and much improved. Afebrile overnight. Erythema improved but still present. Eating and drinking well without any nausea or vomiting. Continued on IV abx. Physical Exam Vital signs: Vital Signs 07/27/18 11:18 07/27/18 15:47 07/27/18 20:00 Temperature 98.6 F 97.8 F 97.0 F L Pulse Rate 92 H 79 90 Respiratory Rate 18 18 18 Blood Pressure 95/54 L 105/51 L 101/51 L Pulse Oximetry 97 97 97 07/27/18 23:57 07/28/18 08:00 Temperature 97.1 F L 98.5 F Pulse Rate 83 64 Respiratory Rate 18 16 Blood Pressure 100/58 L 95/46 L Pulse Oximetry 98 97 Intake & Output 07/27/18 07/28/18 07/28/18 18:59 06:59 18:59 Intake Total 1450 / 1450 200 / 200 Balance 1450 / 1450 200 / 200 Weight 67.8 kg Intake: IV 1450 / 1450 200 / 200 NS Inj 1,000 ML @ 100 mls/hr IV 1000 / 1000 0 / 0 .CONT .Q10H [facility] Rx#:[id number] Zosyn 4.5 GM Premix 4.5 gm In 200 / 200 200 / 200 100 ml @ 200 mls/hr IV.SIG Q6H [facility] Rx#:[id number] Vancomycin Inj 1,000 MG In NS 250 / 250 Inj 250 ML @ 250 mls/hr IV.SIG Q24H [facility] Rx#:[id number] Other: # Voids 2 Narrative: GENERAL: Well-developed, well-nourished patient in [facility]. SKIN: Warm and dry. No rash. HEAD: Normocephalic. Atraumatic. EYES: Pupils equal and round. No scleral icterus. No injection or drainage. ENT: No nasal bleeding or discharge. Mucous membranes pink and moist. NECK: Supple. Trachea midline. CARDIOVASCULAR: Regular rate and rhythm. S1, S2 noted. No murmur appreciated. RESPIRATORY: No accessory muscle use. Clear to auscultation. Breath sounds equal bilaterally. GASTROINTESTINAL: Abdomen soft, non-tender, nondistended. Normoactive bowel sounds x4. MUSCULOSKELETAL: No obvious deformities. Extremities without clubbing, cyanosis , or edema. NEUROLOGICAL: Awake and alert. No obvious cranial nerve deficits. Motor grossly within normal limits. 5/5 muscle strength in bilateral upper and lower extremities. Normal speech. PSYCHIATRIC: Appropriate mood and affect; insight and judgment normal. RIGHT BREAST: Right breast with surgical changes, erythema has much improved today. No palpable fluctuance. No drainage. Surgical site clean, dry and intact. Incision clean. Results - Labs CBC & Chem 7: 07/27/18 06:45 07/27/18 06:45 Microbiology 07/26/18 16:10 Blood - Peripheral Aerobic Blood Culture - Preliminary No growth in 2 days 07/26/18 16:10 Blood - Peripheral Anaerobic Blood Culture - Preliminary No growth in 2 days 07/26/18 15:15 Blood - Peripheral Aerobic Blood Culture - Preliminary No growth in 2 days 07/26/18 15:15 Blood - Peripheral Anaerobic Blood Culture - Preliminary No growth in 2 days - Procedures See above. 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 History of right breast cancer-DCIS with right mastectomy and tissue vocational counselor placement -Patient presented with 2-day history of subjective fevers, chills, generalized malaise, worsening pain and erythema to right breast. -Initial diagnosis of right breast cancer DCIS in April 2018, underwent mastectomy 06/28/18, and had a right breast tissue vocational counselor placed on Monday by Dr. Looney. -Consult placed to plastic surgery, appreciate input and recommendations. -ED physician has given IV Zosyn and Vanco. Will continue. -CBC and BMP reviewed and essentially unremarkable. Currently afebrile. Lactic acid WNL. UA negative. -Blood cultures negative to date, continue to follow. -CXR reviewed and showing no acute findings. Ultrasound of right breast showing small area, not palpable on exam. -Ensure hydration, continue IVF. Regular diet. -Pain control with Acetaminophen as needed, [place] per pain scale. Pain is presently absent. -Supportive care. DVT Prophylaxis: SCDs. Ambulation as tolerated. Discharge Planning: Awaiting clinical improvement.
[2018-07-28] MEDS ORDERED: Vancomycin Consult Pharmacy OTHER PRN (13:39)
[2018-07-28] MEDS: Vancomycin Inj 1,250 MG in Sodium Chlor 0.9% Inj 250 ML IV.SIG SCH (15:46)
--- NOTE | 2018-07-28 15:51 | P.PN ---
Subjective Interval history: Feels slightly better from yesterday. Less pain, though still moderate with shoulder motion. Physical Exam Vital signs: Vital Signs 07/27/18 15:47 07/27/18 20:00 07/27/18 23:57 Temperature 97.8 F 97.0 F L 97.1 F L Pulse Rate 79 90 83 Respiratory Rate 18 18 18 Blood Pressure 105/51 L 101/51 L 100/58 L Pulse Oximetry 97 97 98 07/28/18 08:00 07/28/18 12:00 Temperature 98.5 F 97.0 F L Pulse Rate 64 62 Respiratory Rate 16 12 Blood Pressure 95/46 L 100/50 L Pulse Oximetry 97 97 Intake & Output 07/27/18 07/28/18 07/28/18 18:59 06:59 18:59 Intake Total 1450 / 1450 200 / 200 1100 / 1100 Balance 1450 / 1450 200 / 200 1100 / 1100 Weight 67.8 kg Intake: IV 1450 / 1450 200 / 200 1100 / 1100 NS Inj 1,000 ML @ 100 mls/hr IV 1000 / 1000 0 / 0 1000 / 1000 .CONT .Q10H [facility] Rx#:[id number] Zosyn 4.5 GM Premix 4.5 gm In 200 / 200 200 / 200 100 / 100 100 ml @ 200 mls/hr IV.SIG Q6H [facility] Rx#:[id number] Vancomycin Inj 1,000 MG In NS 250 / 250 Inj 250 ML @ 250 mls/hr IV.SIG Q24H [facility] Rx#:[id number] Other: # Voids 2 Narrative: AF from [place] Alert, appropriate Right breast incision well apposed Moderate blanching erythema persists, though slightly improved from yesterday Results - Labs CBC & Chem 7: 07/27/18 06:45 07/27/18 06:45 Microbiology 07/26/18 16:10 Blood - Peripheral Aerobic Blood Culture - Preliminary No growth in 2 days 07/26/18 16:10 Blood - Peripheral Anaerobic Blood Culture - Preliminary No growth in 2 days 07/26/18 15:15 Blood - Peripheral Aerobic Blood Culture - Preliminary No growth in 2 days 07/26/18 15:15 Blood - Peripheral Anaerobic Blood Culture - Preliminary No growth in 2 days - Procedures See above. Assessment and Plan - Assessment (1) Amastia Code(s): Q83.8 - Other congenital malformations of breast Status: Acute (2) Cellulitis of right breast Code(s): N61.0 - Mastitis without abscess Status: Acute - Plan 52-year-old female 4 weeks status post immediate breast reconstruction with tissue newcomer hostess, now with right breast cellulitis Last night, 55mls removed from newcomer hostess; did not affect patients pain Today, after informed consent obtained, a 10F Jeremy placed percutaneously at bedside Well tolerated Return of ~10mls turbid fluid Cxs sent x 2 CYDNEY to bulb sxn, record output strictly Spoke with Pharmacy who wants Vanc increased to 1.25gm BID from 1gm Daily Vanc trough pending Patient requires IV antibiotics to prevent implant loss
[2018-07-29] MEDS: Vancomycin Inj 1,250 MG in Sodium Chlor 0.9% Inj 250 ML IV.SIG SCH ×2 (02:41→18:10)
[2018-07-29] MEDS: Sod Chloride 0.9% Inj 1,000 ML IV.CONT SCH ×2 (05:20→18:10)
[2018-07-29] MEDS: Piperacil/Tazo 4.5 GM Premix 4.5 GM/100 ML BAG IV.SIG SCH ×4 (05:20→22:16)
--- NOTE | 2018-07-29 09:23 | P.PN ---
Subjective Interval history: This is a pleasant 52 y/o Female with History of Right breast Cancer Ductal Carcinoma in situ, status post mastectomy/tissue firestopper technician on 06/28/18 who presented to the ED with complaints of right breast tenderness, erythema and subjective fevers x 2 days. Patient last seen by Dr. Looney on and was doing well. is been followed on Vancomycin IV, she had removal of 55mls of fluid from firestopper technician, CYDNEY placed by property preservation specialist. 07/29: Seen in her bedroom in the presence of her Daughter, erythema on the Right lower area of the right breast firestopper technician in place no new issues, no nausea, vomit or diarrhea, property preservation specialist following. Physical Exam Vital signs: Vital Signs 07/28/18 12:00 07/28/18 20:00 07/29/18 00:00 Temperature 97.0 F L 98.2 F 98.5 F Pulse Rate 62 77 80 Respiratory Rate 12 17 18 Blood Pressure 100/50 L 104/55 L 99/50 L Pulse Oximetry 97 94 L 94 L 07/29/18 08:00 Temperature 97.8 F Pulse Rate 57 L Respiratory Rate 17 Blood Pressure 101/56 L Pulse Oximetry 98 Intake & Output 07/28/18 07/29/18 07/29/18 18:59 06:59 18:59 Intake Total 2362.5 / 2362.5 1462.5 / 1462.5 100 / 100 Output Total 815 / 815 Balance 2362.5 / 2362.5 647.5 / 647.5 100 / 100 Weight 70.3 kg Intake: IV 2362.5 / 2362.5 1462.5 / 1462.5 100 / 100 NS Inj 1,000 ML @ 100 mls/hr IV 1999 / 1999 1000 / 1000 .CONT .Q10H [facility] Rx#:[id number] Zosyn 4.5 GM Premix 4.5 gm In 100 / 100 200 / 200 100 / 100 100 ml @ 200 mls/hr IV.SIG Q6H [facility] Rx#:[id number] Vancomycin Inj 1,250 MG In NS 262.5 / 262.5 262.5 / 262.5 Inj 250 ML @ 250 mls/hr IV.SIG Q12H [facility] Rx#:[id number] Output: Urine 800 / 800 Wound Vac Amount Right Breast Other: Date of Last Bowel Movement 07/27/18 Narrative: GENERAL: This is a well-nourished, well-developed patient, in no apparent distress. CARDIOVASCULAR: Regular rate and rhythm without murmurs, gallops, or rubs. RESPIRATORY: Clear to auscultation. Breath sounds equal bilaterally. No wheezes , rales, or rhonchi. GASTROINTESTINAL: Abdomen soft, non-tender, nondistended. Normal active bowel sounds MUSCULOSKELETAL: Extremities without clubbing, cyanosis, or edema. NEURO: Alert & Oriented x4 to person, place, time, situation. Moves all ext x4 RIGHT BREAST: Right breast with surgical changes, mild erythema on Right lower area of the right breast, with firestopper technician in place. Surgical incision clean. Results - Labs CBC & Chem 7: 07/27/18 06:45 07/27/18 06:45 Laboratory Results - last 24 hr 07/28/18 15:20 Vancomycin Trough 1.6 L Microbiology 07/26/18 16:10 Blood - Peripheral Aerobic Blood Culture - Preliminary No growth in 2 days 07/26/18 16:10 Blood - Peripheral Anaerobic Blood Culture - Preliminary No growth in 2 days 07/26/18 15:15 Blood - Peripheral Aerobic Blood Culture - Preliminary No growth in 2 days 07/26/18 15:15 Blood - Peripheral Anaerobic Blood Culture - Preliminary No growth in 2 days - Imaging Breast Ultrasound 07/26/18 00:00 CONCLUSION: 1. 3 cm focal fluid collection in the 9:00 right mastectomy region, lateral to the breast.. Chest X-Ray 07/26/18 14:55 CONCLUSION: No acute disease - Procedures See above. 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 History of right breast cancer-DCIS with right mastectomy and tissue firestopper technician placement -Patient presented with 2-day history of subjective fevers, chills, generalized malaise, worsening pain and erythema to right breast. -Initial diagnosis of right breast cancer DCIS in April 2018, underwent mastectomy 06/28/18, and had a right breast tissue firestopper technician placed on Monday07/24/[address] Looney. -Her Primary marketing data specialist doctor Aure following. -Continue on IV Zosyn and Vancomycin -CBC and BMP reviewed and essentially unremarkable. Currently afebrile. Lactic acid WNL. UA negative. -Blood cultures negative to date, continue to follow. -CXR reviewed and showing no acute findings. Ultrasound of right breast showing small area, not palpable on exam. -Pain control with Acetaminophen as needed, [place] per pain scale. Pain is presently absent. DVT Prophylaxis: SCDs. Ambulation as tolerated. Code Status: Full code. Discussed Condition With: Patient, Nurse and Her Daughter in the room. Discharge Planning: Once cleared by her Primary Plastic Surgeon.
[2018-07-30] MEDS: Vancomycin Inj 1,250 MG in Sodium Chlor 0.9% Inj 250 ML IV.SIG SCH ×2 (02:35→17:05)
[2018-07-30] MEDS: Sod Chloride 0.9% Inj 1,000 ML IV.CONT SCH ×2 (02:35→10:47)
[2018-07-30] MEDS ORDERED: Pharmacy Ordered Lab Info OTHER ONE (02:45)
[2018-07-30] MEDS: Piperacil/Tazo 4.5 GM Premix 4.5 GM/100 ML BAG IV.SIG SCH ×3 (04:51→17:35)
--- NOTE | 2018-07-30 10:21 | P.PN ---
Subjective Interval history: This is a pleasant 52 y/o Female with History of Right breast Cancer Ductal Carcinoma in situ, status post mastectomy/tissue clearing hand on 06/28/18 who presented to the ED with complaints of right breast tenderness, erythema and subjective fevers x 2 days. Patient last seen by Dr. Looney on and was doing well. is been followed on Vancomycin IV, she had removal of 55mls of fluid from clearing hand, CYDNEY placed by surgery specialist. 07/29: Seen in her bedroom in the presence of her Daughter, erythema on the Right lower area of the right breast clearing hand in place no new issues, surgery specialist following. 07/30: Stable in her bedroom, her Sister Present, no new issues, no nausea, vomit or diarrhea, today complaint of left upper right breast erythema, improved her erythema on Right lower breast area. Physical Exam Vital signs: Vital Signs 07/29/18 12:00 07/29/18 16:00 07/29/18 20:00 Temperature 97.7 F 98.0 F 97.7 F Pulse Rate 76 68 75 Respiratory Rate 18 17 17 Blood Pressure 100/58 L 106/56 L 102/57 L Pulse Oximetry 97 96 95 07/30/18 00:00 07/30/18 08:00 Temperature 97.8 F 98.0 F Pulse Rate 62 67 Respiratory Rate 17 17 Blood Pressure 101/54 L 101/51 L Pulse Oximetry 98 93 L Intake & Output 07/29/18 07/30/18 07/30/18 18:59 06:59 18:59 Intake Total 3260 / 3260 2205.0 / 2205.0 Output Total 3300 / 3300 2303 / 2303 Balance -40 / -40 -98.0 / -98.0 Weight 70.3 kg Intake: IV 1300 / 1300 1725.0 / 1725.0 NS Inj 1,000 ML @ 100 mls/hr IV 1000 / 1000 1000 / 1000 .CONT .Q10H [facility] Rx#:[id number] Zosyn 4.5 GM Premix 4.5 gm In 300 / 300 200 / 200 100 ml @ 200 mls/hr IV.SIG Q6H [facility] Rx#:[id number] Vancomycin Inj 1,250 MG In NS 525.0 / 525.0 Inj 250 ML @ 250 mls/hr IV.SIG Q12H [facility] Rx#:[id number] Oral 1959 / 1959 480 / 480 Output: Urine 3300 / 3300 2300 / 2300 Wound Drainage Right Breast Other: Date of Last Bowel Movement 07/27/18 Narrative: GENERAL: This is a well-nourished, well-developed patient, in no apparent distress. CARDIOVASCULAR: Regular rate and rhythm without murmurs, gallops, or rubs. RESPIRATORY: Clear to auscultation. Breath sounds equal bilaterally. No wheezes , rales, or rhonchi. GASTROINTESTINAL: Abdomen soft, non-tender, nondistended. Normal active bowel sounds MUSCULOSKELETAL: Extremities without clubbing, cyanosis, or edema. NEURO: Alert & Oriented x4 to person, place, time, situation. Moves all ext x4 RIGHT BREAST: Right breast with surgical changes, Improved erythema on Right lower area of the right breast, with clearing hand in place. Surgical incision clean. has new erythema on Left upper area of the Right breast. Results - Labs CBC & Chem 7: 07/27/18 06:45 07/27/18 06:45 Laboratory Results - last 24 hr 07/30/18 02:35 Vancomycin Trough 13.3 H Microbiology 07/28/18 13:30 Wound - Breast Gram Stain - Final 07/28/18 13:30 Wound - Breast Wound Culture - Preliminary Light growth normal skin jeremy at 24 hours. 07/28/18 13:30 Other Fungal Smear - Final No fungal elements seen 07/26/18 16:10 Blood - Peripheral Aerobic Blood Culture - Preliminary No growth in 3 days 07/26/18 16:10 Blood - Peripheral Anaerobic Blood Culture - Preliminary No growth in 3 days 07/26/18 15:15 Blood - Peripheral Aerobic Blood Culture - Preliminary No growth in 3 days 07/26/18 15:15 Blood - Peripheral Anaerobic Blood Culture - Preliminary No growth in 3 days - Imaging Breast Ultrasound 07/26/18 00:00 CONCLUSION: 1. 3 cm focal fluid collection in the 9:00 right mastectomy region, lateral to the breast.. 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 History of right breast cancer-DCIS with right mastectomy and tissue clearing hand placement -Patient presented with 2-day history of subjective fevers, chills, generalized malaise, worsening pain and erythema to right breast. -Initial diagnosis of right breast cancer DCIS in April 2018, underwent mastectomy 06/28/18, and had a right breast tissue clearing hand placed on Monday by Dr. Looney. -Consult placed to plastic surgery, appreciate input and recommendations. -ED physician has given IV Zosyn and Vanco. Will continue. -CBC and BMP reviewed and essentially unremarkable. Currently afebrile. Lactic acid WNL. UA negative. -Blood cultures negative to date, continue to follow. -CXR reviewed and showing no acute findings. Ultrasound of right breast showing small area, not palpable on exam. -Ensure hydration, continue IVF. Regular diet. -Pain control with Acetaminophen as needed, [place] per pain scale. Pain is presently absent. -Supportive care. DVT Prophylaxis: SCDs. Ambulation as tolerated. No changes to anterior assessment. Code Status: Full code. Discussed Condition With: Patient and Nurse Jo Discharge Planning: Once cleared by her Primary Plastic Surgeon.
[2018-07-31] MEDS: Piperacil/Tazo 4.5 GM Premix 4.5 GM/100 ML BAG IV.SIG SCH ×2 (00:19→04:16)
[2018-07-31] MEDS: Sod Chloride 0.9% Inj 1,000 ML IV.CONT SCH ×2 (00:20→04:18)
[2018-07-31] MEDS: Vancomycin Inj 1,250 MG in Sodium Chlor 0.9% Inj 250 ML IV.SIG SCH (04:16)
--- NOTE | 2018-07-31 10:12 | P.PN ---
Subjective Interval history: Delayed entry from 07/30/2018 at roughly 1600 Redness continues to improve. Patient denies pain. No fevers times several days. Physical Exam Vital signs: Vital Signs 07/30/18 12:00 07/30/18 16:00 07/30/18 20:00 Temperature 97.6 F 98.6 F 97.8 F Pulse Rate 72 69 67 Respiratory Rate 18 17 18 Blood Pressure 93/50 L 115/55 L 104/51 L Pulse Oximetry 93 L 97 95 07/31/18 00:00 07/31/18 07:53 Temperature 98.4 F 97.5 F L Pulse Rate 73 52 L Respiratory Rate 18 19 Blood Pressure 103/51 L 105/53 L Pulse Oximetry 95 97 Intake & Output 07/30/18 07/31/18 07/31/18 18:59 06:59 18:59 Intake Total 2212.5 / 2212.5 3012.5 / 3012.5 Output Total 1000 / 1000 540 / 540 Balance 1212.5 / 1212.5 2472.5 / 2472.5 Weight 69.8 kg Intake: IV 1462.5 / 1462.5 2462.5 / 2462.5 NS Inj 1,000 ML @ 100 mls/hr IV 1000 / 1000 2000 / 2000 .CONT .Q10H [facility] Rx#:[id number] Zosyn 4.5 GM Premix 4.5 gm In 200 / 200 200 / 200 100 ml @ 200 mls/hr IV.SIG Q6H [facility] Rx#:[id number] Vancomycin Inj 1,250 MG In NS 262.5 / 262.5 262.5 / 262.5 Inj 250 ML @ 250 mls/hr IV.SIG Q12H [facility] Rx#:[id number] Oral 750 / 750 550 / 550 Output: Urine 1000 / 1000 540 / 540 Other: Date of Last Bowel Movement 07/30/18 07/30/18 # Bowel Movements 0 Narrative: Right mastectomy skin flaps with 2-3 cm in diameter areas of receding erythema Nontender CYDNEY with serosanguineous thin fluid Results - Labs CBC & Chem 7: 07/27/18 06:45 07/27/18 06:45 Microbiology 07/28/18 13:30 Wound - Breast Gram Stain - Final 07/28/18 13:30 Wound - Breast Wound Culture - Preliminary Light growth normal skin jeremy No anaerobes isolated 07/26/18 16:10 Blood - Peripheral Aerobic Blood Culture - Preliminary No growth in 4 days 07/26/18 16:10 Blood - Peripheral Anaerobic Blood Culture - Preliminary No growth in 4 days 07/26/18 15:15 Blood - Peripheral Aerobic Blood Culture - Preliminary No growth in 4 days 07/26/18 15:15 Blood - Peripheral Anaerobic Blood Culture - Preliminary No growth in 4 days - Procedures None Assessment and Plan - Assessment (1) Amastia Code(s): Q83.8 - Other congenital malformations of breast Status: Acute (2) Cellulitis of right breast Code(s): N61.0 - Mastitis without abscess Status: Acute - Plan 52-year-old female 4 weeks status post immediate breast reconstruction with tissue software tools developer, now with right breast cellulitis 55mls removed from software tools developer; did not affect patients pain Then, after informed consent obtained, a 10F Jeremy placed percutaneously at bedside Well tolerated Return of ~10mls turbid fluid Since then CYDNEY has not produced significant fluid, although ballotable surgical site fluid also on appreciable Cxs consistent with skin jeremy CYDNEY to bulb sxn, record output strictly Because patient still had some erythema, it was recommended that she remain for 1 more night which she was amenable to
--- NOTE | 2018-07-31 10:13 | P.PN ---
Subjective Interval history: Patient denies pain. No new complaints patient strongly requesting to go home Physical Exam Vital signs: Vital Signs 07/30/18 12:00 07/30/18 16:00 07/30/18 20:00 Temperature 97.6 F 98.6 F 97.8 F Pulse Rate 72 69 67 Respiratory Rate 18 17 18 Blood Pressure 93/50 L 115/55 L 104/51 L Pulse Oximetry 93 L 97 95 07/31/18 00:00 07/31/18 07:53 Temperature 98.4 F 97.5 F L Pulse Rate 73 52 L Respiratory Rate 18 19 Blood Pressure 103/51 L 105/53 L Pulse Oximetry 95 97 Intake & Output 07/30/18 07/31/18 07/31/18 18:59 06:59 18:59 Intake Total 2212.5 / 2212.5 3012.5 / 3012.5 Output Total 1000 / 1000 540 / 540 Balance 1212.5 / 1212.5 2472.5 / 2472.5 Weight 69.8 kg Intake: IV 1462.5 / 1462.5 2462.5 / 2462.5 NS Inj 1,000 ML @ 100 mls/hr IV 1000 / 1000 2000 / 1999 .CONT .Q10H [facility] Rx#:[id number] Zosyn 4.5 GM Premix 4.5 gm In 200 / 200 200 / 200 100 ml @ 200 mls/hr IV.SIG Q6H [facility] Rx#:[id number] Vancomycin Inj 1,250 MG In NS 262.5 / 262.5 262.5 / 262.5 Inj 250 ML @ 250 mls/hr IV.SIG Q12H [facility] Rx#:[id number] Oral 750 / 750 550 / 550 Output: Urine 1000 / 1000 540 / 540 Other: Date of Last Bowel Movement 07/30/18 07/30/18 # Bowel Movements 0 Narrative: CYDNEY with scant output times 48 hours Erythema has entirely resolved except for a 3 cm area, which is significantly improved from yesterday No tenderness/undrained fluid Results - Labs CBC & Chem 7: 07/27/18 06:45 07/27/18 06:45 Microbiology 07/28/18 13:30 Wound - Breast Gram Stain - Final 07/28/18 13:30 Wound - Breast Wound Culture - Preliminary Light growth normal skin jeremy No anaerobes isolated 07/26/18 16:10 Blood - Peripheral Aerobic Blood Culture - Preliminary No growth in 4 days 07/26/18 16:10 Blood - Peripheral Anaerobic Blood Culture - Preliminary No growth in 4 days 07/26/18 15:15 Blood - Peripheral Aerobic Blood Culture - Preliminary No growth in 4 days 07/26/18 15:15 Blood - Peripheral Anaerobic Blood Culture - Preliminary No growth in 4 days - Procedures None Assessment and Plan - Assessment (1) Amastia Code(s): Q83.8 - Other congenital malformations of breast Status: Acute (2) Cellulitis of right breast Code(s): N61.0 - Mastitis without abscess Status: Acute - Plan 52-year-old female 4 weeks status post immediate breast reconstruction with tissue kettle operator, now with right breast cellulitis 55mls removed from kettle operator; did not affect patients pain Then, after informed consent obtained, a 10F Jeremy placed percutaneously at bedside Well tolerated Return of ~10mls turbid fluid Since then CYDNEY has not produced significant fluid, although ballotable surgical site fluid also on appreciable Cxs consistent with skin jeremy CYDNEY to bulb sxn, record output strictly Please consider discharge per primary Patient should discharge on broad coverage including MRSA Please consider Augmentin and Bactrim Please have patient call to make an appointment to follow-up in the plastic surgery clinic in 1 week
--- NOTE | 2018-07-31 11:48 | P.PN ---
Subjective Interval history: This is a pleasant 52 y/o Female with History of Right breast Cancer Ductal Carcinoma in situ, status post mastectomy/tissue brineyard supervisor on 06/28/18 who presented to the ED with complaints of right breast tenderness, erythema and subjective fevers x 2 days. Patient last seen by Dr. Looney on and was doing well. is been followed on Vancomycin IV, she had removal of 55mls of fluid from brineyard supervisor, CYDNEY placed by client engagement specialist. 07/29: Seen in her bedroom in the presence of her Daughter, erythema on the Right lower area of the right breast brineyard supervisor in place no new issues, client engagement specialist following. 07/30: Stable in her bedroom, her Sister Present, no new issues, no nausea, vomit or diarrhea, today complaint of left upper right breast erythema, improved her erythema on Right lower breast area. 07/31: Seen in her bedroom stable already seen by client engagement specialist recommended to discharge Home on Bactrim and Augmentin. no nausea, vomit or diarrhea. Physical Exam Vital signs: Vital Signs 07/30/18 12:00 07/30/18 16:00 07/30/18 20:00 Temperature 97.6 F 98.6 F 97.8 F Pulse Rate 72 69 67 Respiratory Rate 18 17 18 Blood Pressure 93/50 L 115/55 L 104/51 L Pulse Oximetry 93 L 97 95 07/31/18 00:00 07/31/18 07:53 Temperature 98.4 F 97.5 F L Pulse Rate 73 52 L Respiratory Rate 18 19 Blood Pressure 103/51 L 105/53 L Pulse Oximetry 95 97 Intake & Output 07/30/18 07/31/18 07/31/18 18:59 06:59 18:59 Intake Total 2212.5 / 2212.5 3012.5 / 3012.5 Output Total 1000 / 1000 540 / 540 Balance 1212.5 / 1212.5 2472.5 / 2472.5 Weight 69.8 kg Intake: IV 1462.5 / 1462.5 2462.5 / 2462.5 NS Inj 1,000 ML @ 100 mls/hr IV 1000 / 1000 2000 / 2000 .CONT .Q10H [facility] Rx#:[id number] Zosyn 4.5 GM Premix 4.5 gm In 200 / 200 200 / 200 100 ml @ 200 mls/hr IV.SIG Q6H [facility] Rx#:[id number] Vancomycin Inj 1,250 MG In NS 262.5 / 262.5 262.5 / 262.5 Inj 250 ML @ 250 mls/hr IV.SIG Q12H [facility] Rx#:[id number] Oral 750 / 750 550 / 550 Output: Urine 1000 / 1000 540 / 540 Other: Date of Last Bowel Movement 07/30/18 07/30/18 # Bowel Movements 0 Narrative: GENERAL: This is a well-nourished, well-developed patient, in no apparent distress. CARDIOVASCULAR: Regular rate and rhythm without murmurs, gallops, or rubs. RESPIRATORY: Clear to auscultation. Breath sounds equal bilaterally. No wheezes , rales, or rhonchi. GASTROINTESTINAL: Abdomen soft, non-tender, nondistended. Normal active bowel sounds MUSCULOSKELETAL: Extremities without clubbing, cyanosis, or edema. NEURO: Alert & Oriented x4 to person, place, time, situation. Moves all ext x4 RIGHT BREAST: Right breast with surgical changes, mild erythema on Right lower area of the right breast, with brineyard supervisor in place. Surgical incision clean. Results - Labs CBC & Chem 7: 07/27/18 06:45 07/27/18 06:45 Microbiology 07/26/18 16:10 Blood - Peripheral Aerobic Blood Culture - Final No growth in 5 days 07/26/18 16:10 Blood - Peripheral Anaerobic Blood Culture - Final No growth in 5 days 07/26/18 15:15 Blood - Peripheral Aerobic Blood Culture - Final No growth in 5 days 07/26/18 15:15 Blood - Peripheral Anaerobic Blood Culture - Final No growth in 5 days 07/28/18 13:30 Wound - Breast Gram Stain - Final 07/28/18 13:30 Wound - Breast Wound Culture - Final Light growth normal skin jeremy No anaerobes isolated - Imaging Breast Ultrasound 07/26/18 00:00 CONCLUSION: 1. 3 cm focal fluid collection in the 9:00 right mastectomy region, lateral to the breast.. 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 History of right breast cancer-DCIS with right mastectomy and tissue brineyard supervisor placement -Patient presented with 2-day history of subjective fevers, chills, generalized malaise, worsening pain and erythema to right breast. -Initial diagnosis of right breast cancer DCIS in April 2018, underwent mastectomy 06/28/18, and had a right breast tissue brineyard supervisor placed on Monday by Dr. Looney. -Consult placed to plastic surgery, appreciate input and recommendations. -ED physician has given IV Zosyn and Vanco. Will continue. -CBC and BMP reviewed and essentially unremarkable. Currently afebrile. Lactic acid WNL. UA negative. -Blood cultures negative to date, continue to follow. -CXR reviewed and showing no acute findings. Ultrasound of right breast showing small area, not palpable on exam. -Ensure hydration, continue IVF. Regular diet. -Pain control with Acetaminophen as needed, [place] per pain scale. Pain is presently absent. -Okay to discharge home by client engagement specialist on Bactrim and Augmentin. follow with her Primary fire fighting equipment specialist in three days. DVT Prophylaxis: SCDs. Ambulation as tolerated. Code Status: Full code. Discussed Condition With: Patient, her Sister and nurse Miss Tidwell Discharge Planning: Discharge Home now.
--- NOTE | 2018-07-31 11:51 | P.DS ---
Date of admission: 07/30/18 13:49 Primary care physician: No Primary Care Physician Attending physician on discharge: Thomas Burton Anticipated date of discharge: 07/31/18 Brief History from admission: This is a pleasant 52-year-old female patient with a known medical history of right breast cancer DCIS initially diagnosed in April 2018, with mastectomy on 06/28/18 and placement of breast coater operator insulation board 07/24/18 who presented to the ED with complaints of right breast tenderness, erythema and subjective fevers x 2 days. Patient states that she underwent a total right mastectomy on 06/28/[address] Loyola and Dr. Looney and since that time was doing very well post operatively. She visited Dr. Looney's office on Monday07/24/18 for drain removal and placement of breast coater operator insulation board. Patient states that she went home and was doing well over the course of the afternoon when that evening around 2030 on Monday she developed sudden chills and subjective fevers of 99.0. Patient states she took some Advil and rested. The next day she complaints of overall generalized fatigue, low-grade fevers, continued chills and developing pain over her right breast and mid sternal area. She states the pain was characteristically heavy in nature, constant and worsened with every breath. Pain has improved with rest and NSAIDs. Along with said symptoms she also noticed a developing mild erythema around her right areola, extending around her entire breast and moving to axilla which prompted her presentation to the ED. Upon assessment tonight patient has mild erythema around right areola expanding to her right axilla, with tenderness to palpation especially in midsternal chest area. ED physician requesting admission and consult placed to plastic surgery Dr. Looney. 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 Patient last seen by Dr. Looney on and was doing well. is been followed on Vancomycin IV, she had removal of 55mls of fluid from coater operator insulation board, CYDNEY placed by documentation specialist. 07/29: Seen in her bedroom in the presence of her Daughter, erythema on the Right lower area of the right breast coater operator insulation board in place no new issues, documentation specialist following. 07/30: Stable in her bedroom, her Sister Present, no new issues, no nausea, vomit or diarrhea, today complaint of left upper right breast erythema, improved her erythema on Right lower breast area. 07/31: Seen in her bedroom stable already seen by documentation specialist recommended to discharge Home on Bactrim and Augmentin. no nausea, vomit or diarrhea. 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 History of right breast cancer-DCIS with right mastectomy and tissue coater operator insulation board placement -Patient presented with 2-day history of subjective fevers, chills, generalized malaise, worsening pain and erythema to right breast. -Initial diagnosis of right breast cancer DCIS in April 2018, underwent mastectomy 06/28/18, and had a right breast tissue coater operator insulation board placed on Monday by Dr. Looney. -Consult placed to plastic surgery, appreciate input and recommendations. -ED physician has given IV Zosyn and Vanco. Will continue. -CBC and BMP reviewed and essentially unremarkable. Currently afebrile. Lactic acid WNL. UA negative. -Blood cultures negative to date, continue to follow. -CXR reviewed and showing no acute findings. Ultrasound of right breast showing small area, not palpable on exam. -Ensure hydration, continue IVF. Regular diet. -Pain control with Acetaminophen as needed, [place] per pain scale. Pain is presently absent. -Okay to discharge home by documentation specialist on Bactrim and Augmentin. follow with her Primary mortgage loan specialist in three days. DVT Prophylaxis: SCDs. Ambulation as tolerated. Code Status: Full code. Discussed Condition With: Patient, her Sister and nurse Miss Tidwell Discharge Planning: Discharge Home now. - Time Spent with Patient Total time spent providing and/or coordinating discharge services: Less than 30 minutes - Quality: VTE Deep Vein Thrombosis/Pulmonary Embolism Present on Admission: No Exam Vital signs: Vital Signs 07/30/18 12:00 07/30/18 16:00 07/30/18 20:00 Temperature 97.6 F 98.6 F 97.8 F Pulse Rate 72 69 67 Respiratory Rate 18 17 18 Blood Pressure 93/50 L 115/55 L 104/51 L Pulse Oximetry 93 L 97 95 07/31/18 00:00 07/31/18 07:53 Temperature 98.4 F 97.5 F L Pulse Rate 73 52 L Respiratory Rate 18 19 Blood Pressure 103/51 L 105/53 L Pulse Oximetry 95 97 Intake & Output 07/30/18 07/31/18 07/31/18 18:59 06:59 18:59 Intake Total 2212.5 / 2212.5 3012.5 / 3012.5 Output Total 1000 / 1000 540 / 540 Balance 1212.5 / 1212.5 2472.5 / 2472.5 Weight 69.8 kg Intake: IV 1462.5 / 1462.5 2462.5 / 2462.5 NS Inj 1,000 ML @ 100 mls/hr IV 1000 / 1000 1999 / 1999 .CONT .Q10H [facility] Rx#:[id number] Zosyn 4.5 GM Premix 4.5 gm In 200 / 200 200 / 200 100 ml @ 200 mls/hr IV.SIG Q6H [facility] Rx#:[id number] Vancomycin Inj 1,250 MG In NS 262.5 / 262.5 262.5 / 262.5 Inj 250 ML @ 250 mls/hr IV.SIG Q12H [facility] Rx#:[id number] Oral 750 / 750 550 / 550 Output: Urine 1000 / 1000 540 / 540 Other: Date of Last Bowel Movement 07/30/18 07/30/18 # Bowel Movements 0 Narrative: GENERAL: This is a well-nourished, well-developed patient, in no apparent distress. CARDIOVASCULAR: Regular rate and rhythm without murmurs, gallops, or rubs. RESPIRATORY: Clear to auscultation. Breath sounds equal bilaterally. No wheezes , rales, or rhonchi. GASTROINTESTINAL: Abdomen soft, non-tender, nondistended. Normal active bowel sounds MUSCULOSKELETAL: Extremities without clubbing, cyanosis, or edema. NEURO: Alert & Oriented x4 to person, place, time, situation. Moves all ext x4 RIGHT BREAST: Right breast with surgical changes, mild erythema on Right lower area of the right breast, with coater operator insulation board in place. Surgical incision clean. Results Procedures completed during hospitalization: None - Impressions ITS Impressions Breast Ultrasound 07/26/18 00:00 CONCLUSION: 1. 3 cm focal fluid collection in the 9:00 right mastectomy region, lateral to the breast.. Chest X-Ray 07/26/18 14:55 CONCLUSION: No acute disease Discharge Plan - Discharge Disposition Patient Disposition: Discharge Home - Discharge Condition Condition: Stable - Discharge Order Discharge Orders: Discharge Order (Routine); Ordered 07/31/18 Ordered By: Thomas Burton - Discharge Details Anticipated Discharge Date: 07/31/18 Discharge Comment: Follow up with mortgage loan specialist in three days - Physicians Team Primary Care Provider: Primary Care Physici,No Attending Provider: Thomas Burton Other Providers: Eva Nava MD
[2018-08-01] MEDS ORDERED: Pharmacy Ordered Lab Info OTHER ONE (02:45)
== END 2018-07-31 13:10 | disposition home or self-care (01) ==
LOC: PHEDA 14:23 → PHED 14:23 → PH3 17:35 → N07 07-28 18:11
PROVIDERS: ADMIT Internal Medicine; ATTEND Internal Medicine